=== PATIENT | female | born 1980 | race Caucasian/White ===

== ENCOUNTER 2018-02-08 09:24 | Emergency (ER) | payer MEDICAID ==
[~2018-02-08] VITALS: Ht 160 cm; Wt 81.8 kg
[2018-02-08 10:28] VITALS: BP 139/78
[2018-02-08] MEDS ORDERED: KETOROLAC TROMETHAMINE 60 MG/2 ML VIAL IM ONE (10:30)
== END 2018-02-08 11:54 | disposition home or self-care (01) ==
LOC: EMS 09:26
DX: S93.602A Unspecified sprain of left foot, initial encounter (principal); E03.9 Hypothyroidism, unspecified; X50.1XXA Overexertion from prolonged static or awkward postures, initial encounter; Y93.89 Activity, other specified; Y92.098 Other place in other non-institutional residence as the place of occurrence of the external cause; Y99.8 Other external cause status
CPT/HCPCS: 73630; 96372; 99284; J1885

== ENCOUNTER 2019-01-08 08:43 | Emergency (ER) | payer MEDICAID, OTHER ==
[~2019-01-08] VITALS: Ht 160 cm; Wt 80.0 kg
[2019-01-08 08:56] VITALS: BP 128/82
== END 2019-01-08 10:00 | disposition left against medical advice (07) ==
LOC: EMS 08:44
DX: Z53.21 Procedure and treatment not carried out due to patient leaving prior to being seen by health care provider (principal)